=== PATIENT | male | born 1985 | race African-American/Black ===

== ENCOUNTER 2019-10-20 07:01 | Emergency (ER) | payer OTHER ==
[~2019-10-20] VITALS: Ht 180.3 cm; Wt 83.9 kg
[2019-10-20 07:18] VITALS: BP 114/73
[2019-10-20] MEDS ORDERED: NOHOMEMEDICATIONS (07:19)
== END 2019-10-20 07:37 | disposition home or self-care (01) ==
LOC: ER 07:01
DX: J02.9 Acute pharyngitis, unspecified (principal); F17.210 Nicotine dependence, cigarettes, uncomplicated

== ENCOUNTER 2020-04-26 18:48 | Emergency (ER) | payer BC, OTHER ==
[~2020-04-26] VITALS: Ht 180.3 cm; Wt 90.7 kg
[~2020-04-26 18:48] MED LIST: NOHOMEMEDICATIONS
[2020-04-26] MEDS ORDERED: MOBIC7.5 MG PO (20:03)
[2020-04-26 20:42] VITALS: BP 126/70
== END 2020-04-26 20:40 | disposition home or self-care (01) ==
LOC: ER 18:48
DX: M75.22 Bicipital tendinitis, left shoulder (principal); F17.210 Nicotine dependence, cigarettes, uncomplicated

== ENCOUNTER 2020-11-22 10:06 | Emergency (ER) | payer BC, OTHER ==
[~2020-11-22] VITALS: Ht 180.3 cm; Wt 88.5 kg
[~2020-11-22 10:06] MED LIST changes: +MOBIC7.5 MG PO
[2020-11-22] MEDS ORDERED: AMOXICILLIN500 M1 PO (13:22)
[2020-11-22 13:30] VITALS: BP 124/79
== END 2020-11-22 13:32 | disposition home or self-care (01) ==
LOC: ER 10:06
DX: J02.0 Streptococcal pharyngitis (principal); M54.9 Dorsalgia, unspecified; F17.210 Nicotine dependence, cigarettes, uncomplicated; Z20.822 Contact with and (suspected) exposure to COVID-19; Z79.899 Other long term (current) drug therapy